=== PATIENT | male | born 1955 | race Caucasian/White ===

== ENCOUNTER → 2020-10-24 | Outpatient (CLI) | payer MEDICARE ==
[~2020-10-24] MED LIST: ALBUTEROL2.5 MG/3 M INH; ASPIRIN CHEWABL81 MG PO; BRILINTA PO; CARDURA1 MG PO; CYCLOBENZAPRINE10 MG PO; DILTIAZEM 24HR360 MG PO; DOXAZOSIN MESYLA2 MG PO; ECOTRIN81 MG PO; FLEXERIL 10 MG10 MG PO; FOLIC ACID 1 MG1 MG PO; HYDRALAZINE HC100 MG PO; IBU800 MG PO; LEVOTHYROXINE150 MC1 PO; LIPITOR TAB 2020 MG PO; METOPROLOL SUCC50 MG PO; NITROGLYCERIN0.4 MG SL; PERCOCET 5-3251 EACH PO; SYNTHROID150 MCG PO; TOPIRAMATE25 MG PO; TOPROL XL50 MG PO; VITAMIN D PO; VITAMIN D250000 UNIT PO; ZANTAC150 MG PO; ZESTRIL40 MG PO
== END ==
LOC: KOH-I 10:35
DX: Z12.2 Encounter for screening for malignant neoplasm of respiratory organs (principal); Z87.891 Personal history of nicotine dependence; N28.89 Other specified disorders of kidney and ureter
CPT/HCPCS: 71271

== ENCOUNTER → 2020-11-11 | Day surgery (SDC) | payer MEDICARE, OTHER | END | disposition home or self-care (01) | LOC: OR 06:42 | PROVIDERS: Internal Medicine Pulmonary Disease | PROC: 0B9G8ZX Drainage of Left Upper Lung Lobe, Via Natural or Artificial Opening Endoscopic, Diagnostic (ICD-10-PCS; principal; 2020-11-11 07:30) | DX: R91.8 Other nonspecific abnormal finding of lung field (principal); J44.9 Chronic obstructive pulmonary disease, unspecified; I25.10 Atherosclerotic heart disease of native coronary artery without angina pectoris; I10 Essential (primary) hypertension; I48.91 Unspecified atrial fibrillation; E78.5 Hyperlipidemia, unspecified; M47.812 Spondylosis without myelopathy or radiculopathy, cervical region; M47.816 Spondylosis without myelopathy or radiculopathy, lumbar region; M79.7 Fibromyalgia; G89.29 Other chronic pain; H66.90 Otitis media, unspecified, unspecified ear; E03.9 Hypothyroidism, unspecified; E66.9 Obesity, unspecified; Z68.33 Body mass index [BMI] 33.0-33.9, adult; Z79.899 Other long term (current) drug therapy; Z95.5 Presence of coronary angioplasty implant and graft; Z87.891 Personal history of nicotine dependence; Z20.822 Contact with and (suspected) exposure to COVID-19; Z88.6 Allergy status to analgesic agent; Z88.8 Allergy status to other drugs, medicaments and biological substances; Z91.041 Radiographic dye allergy status; Z79.82 Long term (current) use of aspirin | CPT/HCPCS: J2250; J2704; J3010; J7120 ==

== ENCOUNTER → 2021-01-27 | Outpatient (CLI) | payer MEDICARE, OTHER | LOC: RAD 10:06 | DX: Z00.00 Encounter for general adult medical examination without abnormal findings (principal); J90 Pleural effusion, not elsewhere classified; Z98.890 Other specified postprocedural states | CPT/HCPCS: 71046 ==

== ENCOUNTER → 2021-05-12 | Outpatient (CLI) | payer MEDICARE, OTHER | LOC: RAD 15:59 | DX: C34.90 Malignant neoplasm of unspecified part of unspecified bronchus or lung (principal); J90 Pleural effusion, not elsewhere classified; J98.4 Other disorders of lung | CPT/HCPCS: 71046 ==

== ENCOUNTER → 2021-05-14 | Outpatient (CLI) | payer MEDICARE, OTHER ==
[2021-05-14 09:36] LABS: TOTAL PROTEIN, BODY FLUID 4.2 gm/dL
== END | disposition home or self-care (01) ==
LOC: OPSV 07:38 → US 10:30
PROVIDERS: Internal Medicine Pulmonary Disease
PROC: 0W9B3ZZ Drainage of Left Pleural Cavity, Percutaneous Approach (ICD-10-PCS; principal; 2021-05-14)
DX: J90 Pleural effusion, not elsewhere classified (principal); Z85.118 Personal history of other malignant neoplasm of bronchus and lung
CPT/HCPCS: 71046; 83615; 84157; C1729

== ENCOUNTER 2021-05-17 13:32 | Emergency (ER) | payer MEDICARE, OTHER ==
[2021-05-17 14:23] LABS: HEMOGLOBIN 12.8 gm/dl (14.0-17.5); RED BLOOD COUNT 4.97 M/UL (4.20-5.50); WHITE BLOOD COUNT 8.6 K/UL (4.5-11.0)
[2021-05-17 14:45] LABS: BUN/CREATININE RATIO 13 (0-10)
== END 2021-05-17 23:50 | disposition short-term general hospital (02) ==
LOC: ER1 13:32
PROVIDERS: Student in an Organized Health Care Education/Training Program
DX: J94.2 Hemothorax (principal); I25.10 Atherosclerotic heart disease of native coronary artery without angina pectoris; I10 Essential (primary) hypertension; Z20.822 Contact with and (suspected) exposure to COVID-19; Z85.118 Personal history of other malignant neoplasm of bronchus and lung
CPT/HCPCS: 71045; 71275; 80053; 82550; 82553; 83874; 84484; 85025; 93005; 96365; 99285; J7030; Q9967; U0002

== ENCOUNTER → 2021-05-27 | Outpatient (CLI) | payer MEDICARE, OTHER | LOC: EXRD 14:56 | DX: R06.02 Shortness of breath (principal); J90 Pleural effusion, not elsewhere classified | CPT/HCPCS: 71046 ==

== ENCOUNTER → 2021-07-22 | Outpatient (CLI) | payer MEDICARE, OTHER | LOC: CT 07:55 | DX: C34.12 Malignant neoplasm of upper lobe, left bronchus or lung (principal); J98.4 Other disorders of lung; J90 Pleural effusion, not elsewhere classified | CPT/HCPCS: 71260 ==

== ENCOUNTER 2021-09-14 05:14 | Emergency (ER) | payer MEDICARE, OTHER | END 2021-09-14 07:50 | disposition home or self-care (01) | LOC: ER1 05:14 | DX: U07.1 COVID-19 (principal); I25.2 Old myocardial infarction; J44.9 Chronic obstructive pulmonary disease, unspecified; I10 Essential (primary) hypertension; Z88.8 Allergy status to other drugs, medicaments and biological substances | CPT/HCPCS: 0240U; 94664; 99283 ==

== ENCOUNTER → 2021-09-16 | Outpatient (CLI) | payer MEDICARE, OTHER ==
[~2021-09-16] VITALS: Ht 188 cm; Wt 113.4 kg
== END ==
LOC: EROP 11:12
DX: Z23 Encounter for immunization (principal); U07.1 COVID-19; I10 Essential (primary) hypertension; Z85.118 Personal history of other malignant neoplasm of bronchus and lung
CPT/HCPCS: M0247; Q0247

== ENCOUNTER → 2021-10-10 | Outpatient (CLI) | payer MEDICARE, OTHER | LOC: EXRD 09:08 | DX: J44.9 Chronic obstructive pulmonary disease, unspecified (principal); J90 Pleural effusion, not elsewhere classified; R91.8 Other nonspecific abnormal finding of lung field | CPT/HCPCS: 71046 ==

== ENCOUNTER → 2021-10-23 | Outpatient (CLI) | payer MEDICARE, OTHER | LOC: EXRD 09:55 | DX: J20.9 Acute bronchitis, unspecified (principal); R91.8 Other nonspecific abnormal finding of lung field | CPT/HCPCS: 71046 ==

== ENCOUNTER → 2022-01-16 | Outpatient (CLI) | payer MEDICARE, OTHER ==
[~2022-01-16] MED LIST changes: -ALBUTEROL2.5 MG/3 M INH; +AMLODIPINE BESY10 MG PO; +FLONASE 0.05% N16 GM; +LIPITOR40 MG PO; +METOPROLOL SUC100 MG PO; -METOPROLOL SUCC50 MG PO; +MONTELUKAST SOD10 MG PO; +ONDANSETRON ODT8 MG PO; +PROAIR HFA8.5 GM INH; +VITAMIN D21250 MCG PO; +XARELTO2.5 MG PO; +ZOLPIDEM TARTRAT5 MG PO
== END ==
LOC: KOH-I 14:00
DX: C34.12 Malignant neoplasm of upper lobe, left bronchus or lung (principal); R91.1 Solitary pulmonary nodule
CPT/HCPCS: 71250

== ENCOUNTER 2022-01-19 06:02 | Observation (INO) | payer MEDICARE, OTHER ==
[~2022-01-19] VITALS: Ht 188 cm; Wt 117.9 kg
[~2022-01-19 06:02] MED LIST changes: -AMLODIPINE BESY10 MG PO; -FLONASE 0.05% N16 GM; -MONTELUKAST SOD10 MG PO; -ONDANSETRON ODT8 MG PO; -VITAMIN D21250 MCG PO; -XARELTO2.5 MG PO; -ZOLPIDEM TARTRAT5 MG PO
[2022-01-19 06:29] LABS: HEMOGLOBIN 13.4 gm/dl (14.0-17.5); RED BLOOD COUNT 4.93 M/UL (4.20-5.50); WHITE BLOOD COUNT 8.6 K/UL (4.5-11.0)
[2022-01-19] MEDS ORDERED: VITAMIN D21250 MCG PO (14:42)
[2022-01-19] MEDS ORDERED: AMLODIPINE BESY10 MG PO (14:49)
[2022-01-19] MEDS ORDERED: ONDANSETRON ODT8 MG PO (14:50)
[2022-01-19] MEDS ORDERED: ZOLPIDEM TARTRAT5 MG PO (14:51)
[2022-01-19] MEDS ORDERED: FLONASE 0.05% N16 GM (14:51)
[2022-01-19] MEDS ORDERED: XARELTO2.5 MG PO (14:52)
[2022-01-19] MEDS ORDERED: MONTELUKAST SOD10 MG PO (14:54)
[2022-01-20 06:55] LABS: HEMOGLOBIN 11.6 gm/dl (14.0-17.5); WHITE BLOOD COUNT 7.1 K/UL (4.5-11.0)
[2022-01-20 07:02] LABS: RED BLOOD COUNT 4.42 M/UL (4.20-5.50)
[2022-01-21 06:47] LABS: RED BLOOD COUNT 4.42 M/UL (4.20-5.50); WHITE BLOOD COUNT 6.6 K/UL (4.5-11.0)
== END 2022-01-21 12:09 | disposition home or self-care (01) ==
LOC: ER1 06:02 → MED SURG 4 10:54 → CDU 10:54 → MED SURG 4 16:27
PROVIDERS: Internal Medicine; Physician Assistant; ADMIT Internal Medicine
DX: R07.89 Other chest pain (principal); I12.9 Hypertensive chronic kidney disease with stage 1 through stage 4 chronic kidney disease, or unspecified chronic kidney disease; N18.30 Chronic kidney disease, stage 3 unspecified; I25.2 Old myocardial infarction; I25.10 Atherosclerotic heart disease of native coronary artery without angina pectoris; R91.1 Solitary pulmonary nodule; E78.5 Hyperlipidemia, unspecified; E03.9 Hypothyroidism, unspecified; G43.109 Migraine with aura, not intractable, without status migrainosus; G89.29 Other chronic pain; M54.50 Low back pain, unspecified; I73.9 Peripheral vascular disease, unspecified; G47.00 Insomnia, unspecified; Z95.5 Presence of coronary angioplasty implant and graft; Z85.118 Personal history of other malignant neoplasm of bronchus and lung; Z88.6 Allergy status to analgesic agent; Z88.8 Allergy status to other drugs, medicaments and biological substances; Z91.041 Radiographic dye allergy status; Z87.891 Personal history of nicotine dependence; Z79.890 Hormone replacement therapy; Z79.01 Long term (current) use of anticoagulants; Z79.51 Long term (current) use of inhaled steroids; Z79.899 Other long term (current) drug therapy; Z98.890 Other specified postprocedural states; Z87.19 Personal history of other diseases of the digestive system
CPT/HCPCS: ECHO; 36415; 71046; 78452; 80048; 80053; 82550; 82553; 82962; 83735; 84484; 85025; 85027; 85610; 93005; 93017; 93306; 99285; A9502; G0378; J2785; J7030

== ENCOUNTER → 2022-01-26 | Outpatient (CLI) | payer MEDICARE, OTHER ==
[~2022-01-26] MED LIST changes: +AMLODIPINE BESY10 MG PO; +FLONASE 0.05% N16 GM; +MONTELUKAST SOD10 MG PO; +ONDANSETRON ODT8 MG PO; +VITAMIN D21250 MCG PO; +XARELTO2.5 MG PO; +ZOLPIDEM TARTRAT5 MG PO
== END ==
LOC: EXRD 10:31
DX: M54.50 Low back pain, unspecified (principal); M47.816 Spondylosis without myelopathy or radiculopathy, lumbar region; M51.34 Other intervertebral disc degeneration, thoracic region; M89.8X8 Other specified disorders of bone, other site; Z90.2 Acquired absence of lung [part of]
CPT/HCPCS: 72070; 72100

== ENCOUNTER → 2022-04-15 | Outpatient (CLI) | payer MEDICARE | LOC: MRI 04-14 10:00 | DX: G43.409 Hemiplegic migraine, not intractable, without status migrainosus (principal); R42 Dizziness and giddiness; R41.3 Other amnesia; M54.9 Dorsalgia, unspecified; Z87.891 Personal history of nicotine dependence; G31.9 Degenerative disease of nervous system, unspecified; R90.82 White matter disease, unspecified | CPT/HCPCS: 70551; 76706 ==